=== PATIENT | female | born 1990 | race Caucasian/White ===

== ENCOUNTER 2016-09-15 17:52 | Emergency (ER) | payer MEDICARE, OTHER ==
--- NOTE | ~2016-09-15 | CR142 ---
[facility] A Service of [facility] & [facility] RADIOLOGY TEXT RESULTS PATIENT: LORENA PHILLIPS LOCATION: SED : [birth year] UNIT #: [id number] AGE: [address]: Lashanda Berry APRN SEX: F ORDER DR: [id number] [address] [address] [id number] E MR#: [id number] Acc #: [id number] NAME: LORENA PHILLIPS : 1990 SEX: F STUDY DATE/TIME: 09/15/2016 17:37 UNIT: SED ROOM: STUDY DESCRIPTION: CR Hand Min 3 Views Rt Attending Physician: Lashanda Berry A.P.R.N. Ordering Physician: Lashanda Hines A.P.R.N. Primary Care Physician: Deja Tirado M.D. MEDICAL IMAGING REPORT This report is preliminary unless electronic signature is present. EXAM Right hand series, 09/15/2016 HISTORY Punched a wall 2 days ago. Punched a wall today. Fell off truck week ago. Pain, bruising 3, 5, 5. FINDINGS AP, lateral and oblique radiographs of the right hand are presented. Comparison 09/26/2013. No traumatic fracture or malalignment. The joint spaces are intact. No soft tissue defect, subcutaneous air or radiodense foreign body. Dictated by... Navarro Spicer M.D. THIS IS AN ELECTRONICALLY VERIFIED REPORT Navarro Spicer M.D. at 09/16/2016 5:36 PM ANTIONE/carlitos TD: 09/15/2016 22:10 JOB #: [id number] MEDICAL IMAGING REPORT Page 1 of 1
[~2016-09-15 17:52] MED LIST: AUGMENTIN PO; CLINDAMYCIN HC300 MG PO; DEXADRINE; DOXYCYCLINE150 MG PO; ELIMITE60 GM TOP; FLEXERIL; FLEXERIL10 MG PO; IBUPROFEN800 MG PO; LORTAB 5/500 TA1 TA1 PO; NEURONTIN300 MG PO; PEN-VEE K PO; SEROQUEL PO; SEROQUEL XR300 M1 PO; TYLOX1 CAP 5/50 PO; VICODIN 5/1 TAB 5/50 PO; VOLTAREN50 MG PO; VOLTAREN75 MG PO
== END 2016-09-15 18:36 | disposition home or self-care (01) ==
LOC: SED 17:52
DX: S60.221A Contusion of right hand, initial encounter (principal); F17.210 Nicotine dependence, cigarettes, uncomplicated; Z91.040 Latex allergy status; Z79.899 Other long term (current) drug therapy; X58.XXXA Exposure to other specified factors, initial encounter; Y92.098 Other place in other non-institutional residence as the place of occurrence of the external cause
CPT/HCPCS: 29280; 73130; 99283

== ENCOUNTER 2017-02-08 09:26 | Emergency (ER) | payer MEDICARE, OTHER ==
[2017-02-08 11:00] LABS: BASOPHIL% 0.3 % (0-2.5); EOSINOPHIL% 0.1 % (0.0-7.0); HEMATOCRIT 40.8 % (35.0-45.0); HEMOGLOBIN 13.9 gm/dL (12.0-16.0); LYMPHOCYTE# 2.9 X10e3 (1.0-3.5); LYMPHOCYTE% 22.1 % (17.0-45.0); MEAN CELL VOLUME 86.2 FL (83-96); MEAN CORPUSCULAR HEMOGLOBIN 29.5 PG (28-34); MEAN CORPUSCULAR HGB CONC 34.2 g/dL (30-36); MEAN PLATELET VOLUME 10.6 FL (6.5-11.5); MONOCYTE# 0.7 X10e3 (0-1.0); MONOCYTE% 5.6 % (3.0-12.0); NEUTROPHIL# 9.5 X10e3 (1.5-7.1); NEUTROPHIL% 71.9 % (40-75); PLATELET COUNT 230 X10e3 (140-420); RED BLOOD COUNT 4.73 X10e (3.90-5.30); RED CELL DISTRIBUTION WIDTH 13.9 % (11.0-15.5); WHITE BLOOD COUNT 13.2 X10e3 (4.0-10.5)
[2017-02-08 11:04] LABS: DIFF IND NO
[2017-02-08 11:13] LABS: URINE SOURCE CLEAN CATCH
[2017-02-08 11:16] LABS: URINE APPEARANCE SL CLOUDY; URINE BILIRUBIN NEG (NEG); URINE BLOOD 3+ (NEG); URINE COLOR YELLOW; URINE GLUCOSE NEG (NORM); URINE KETONE TRACE (NEG); URINE LEUKOCYTE ESTERASE TRACE (NEG); URINE NITRATE POS (NEG); URINE PROTEIN NEG (NEG); URINE SPECIFIC GRAVITY >=1.030 (1.003-1.035); URINE UROBILINOGEN 0.2 MG/DL (NORM)
[2017-02-08 11:17] LABS: MICRO INDICATED? YES
[2017-02-08 11:24] LABS: CULTURE INDICATED? YES; URINE BACTERIA 4+ (NEG); URINE RBC 0-2 /[HPF] (0-2); URINE SQUAMOUS EPITHELIAL CELL FEW /[HPF]
[2017-02-08 11:25] LABS: AMPHETAMINE POS (NEG); BARBITURATES NEG (NEG); BENZODIAZEPINES NEG (NEG); COCAINE NEG (NEG); MARIJUANA POS (NEG); OPIATES POS (NEG); TRICYCLIC ANTIDEPRESSANTS NEG (NEG); U METHADONE NEG (NEG); URINE YEAST PRESENT
== END 2017-02-08 11:50 | disposition left against medical advice (07) ==
LOC: SED 09:26
PROVIDERS: Nurse Practitioner
DX: R07.81 Pleurodynia (principal); F90.9 Attention-deficit hyperactivity disorder, unspecified type; F31.9 Bipolar disorder, unspecified; F17.210 Nicotine dependence, cigarettes, uncomplicated; Z79.899 Other long term (current) drug therapy; Z91.040 Latex allergy status; Y04.0XXA Assault by unarmed brawl or fight, initial encounter; Y92.009 Unspecified place in unspecified non-institutional (private) residence as the place of occurrence of the external cause
CPT/HCPCS: 36415; 51701; 80307; 81003; 84703; 85025; 87086; 87088; 87186; 96374; 96375; 99284; J0595; J2405